=== PATIENT | male | born 1995 | race Caucasian/White ===

== ENCOUNTER 2017-02-06 12:45 | Emergency (ER) | payer MEDICAID ==
[2014-11-18 09:40] VITALS: BMI 20.2
[~2017-02-06 12:45] MED LIST: HYDROCODONE-APA1 TAB PO; KEFLEX500 MG PO
[2017-02-06 13:14] LABS: BASOPHILS 0.1 % (0.0-2.0); EOSINOPHILS 0.8 % (0-7); HEMATOCRIT 44.1 % (42.0-54.0); HEMOGLOBIN 15.7 g/dL (13.5-17.5); IMMATURE GRANULOCYTES 0.4 % (0-5); LYMPHOCYTES 15.8 % (15-50); MCH 32.2 pg (26.0-34.0); MCHC 35.6 g/dL (31.0-37.0); MCV 90.6 fL (80.0-100.0); MEAN PLATELET VOLUME 11.1 fL (7.4-10.4); MONOCYTES 7.6 % (2-11); NEUTROPHILS 75.3 % (40-80); PLATELET COUNT 162 10x3/uL (130-400); RBC 4.87 10x6/uL (4.20-6.10); RDW 12.2 % (11.5-14.5); WBC 14.4 10x3/uL (4.8-10.8)
== END 2017-02-06 14:54 | disposition home or self-care (01) ==
LOC: D.ER 12:45
PROVIDERS: Emergency Medicine
DX: L02.01 Cutaneous abscess of face (principal); L03.211 Cellulitis of face; L73.9 Follicular disorder, unspecified; F17.200 Nicotine dependence, unspecified, uncomplicated